=== PATIENT | male | born 1965 | race Caucasian/White ===

== ENCOUNTER 2017-12-20 13:58 | Emergency (ER) | payer MEDICARE, MEDICAID ==
[~2017-12-20] VITALS: Ht 170.2 cm; Wt 85.0 kg
[~2017-12-20 13:58] MED LIST: CLA10T PO; DES150T PO; DIL100C PO; HYDR-3717 PO; PYRI50TA10 PO; [UNRECOGNIZED DRUG - CODE] PO
[2017-12-20 14:04] VITALS: BP 154/68
[2017-12-20 14:44] LABS: BASOPHILS # (AUTO) 0.1 X10'3 (0-0.2); BASOPHILS % (AUTO) 0.9 % (0-1); EOSINOPHILS # (AUTO) 0.1 X10'3 (0-0.9); EOSINOPHILS % (AUTO) 1.3 % (0-6); HEMATOCRIT 43.6 % (42.0-52.0); HEMOGLOBIN 15.5 g/dl (14.0-17.9); LYMPHOCYTES # (AUTO) 1.9 X10'3 (1.1-4.8); LYMPHOCYTES % (AUTO) 19.7 % (21-51); MEAN CORPUSCULAR HEMOGLOBIN 30.8 PG (27.0-31.0); MEAN CORPUSCULAR HGB CONC 35.5 % (33.0-36.5); MEAN CORPUSCULAR VOLUME 86.7 FL (78-98); MEAN PLATELET VOLUME 9.4 FL (7.4-10.4); MONOCYTES # (AUTO) 0.6 X10'3 (0-0.9); MONOCYTES % (AUTO) 6.5 % (2-12); NEUTROPHILS # (AUTO) 6.8 X10'3 (1.8-7.7); NEUTROPHILS % (AUTO) 71.6 % (42-75); PLATELET COUNT 175 X10'3 (140-440); RED BLOOD COUNT 5.03 X10'6 (4.70-6.10); RED CELL DISTRIBUTION WIDTH 13.6 % (11.5-14.5); WHITE BLOOD COUNT 9.5 X10'3 (4.5-11.0)
[2017-12-20 14:59] LABS: ALANINE AMINOTRANSFERASE 47 U/L (12-78); ALBUMIN 3.7 G/DL (3.4-5.0); ALBUMIN/GLOBULIN RATIO 0.9 (1.1-1.5); ALKALINE PHOSPHATASE 188 IU/L (46-116); ANION GAP 10 (8-16); ASPARTATE AMINO TRANSFERASE 33 U/L (10-37); BILIRUBIN,TOTAL 0.2 MG/DL (0.1-1.0); BLOOD UREA NITROGEN 17 MG/DL (7-18); BUN/CREATININE RATIO 20.2 (5.4-32.0); CALCIUM 8.3 MG/DL (8.5-10.1); CHLORIDE 109 MMOL/L (99-107); CREATININE 0.84 MG/DL (0.60-1.10); POTASSIUM 3.8 MMOL/L (3.5-5.1); SODIUM 145 MMOL/L (135-145); TOTAL CARBON DIOXIDE 26.5 MMOL/L (24-32); TOTAL PROTEIN 7.8 G/DL (6.4-8.2); eGFR > 90 ML/MIN
[2017-12-20 15:00] LABS: GLUCOSE 110 MG/DL (70-104)
[2017-12-20 15:24] LABS: CLARITY,URINE Clear (Clear); COLOR,URINE Yellow (Yellow); GLUCOSE, URINE Negative (Neg); KETONES,URINE Negative (Neg); LEUKOCYTE ESTERASE ,URINE Trace (Neg); NITRITES, URINE Negative (Neg); OCCULT BLOOD,URINE Moderate (Neg); PH,URINE 6.5 (4.8-8.0); PROTEIN,URINE Trace mg/dl (Neg)
[2017-12-20 15:32] LABS: UA COLLECTION TYPE CLN CATCH MIDSTREAM
[2017-12-20 15:57] LABS: RBC,URINE 50-100 /HPF (0-2); WBC,URINE 0-4 /HPF (0-4)
[2017-12-20 15:58] LABS: BACTERIA,URINE NONE SEEN /HPF (Neg); SQUAMOUS EPITHELIAL CELL,UR FEW /LPF (FEW)
[2017-12-20] MEDS ORDERED: LEVO500T2 PO (18:05)
== END 2017-12-20 18:20 | disposition home or self-care (01) ==
LOC: ER 13:59
DX: R31.9 Hematuria, unspecified (principal); N39.0 Urinary tract infection, site not specified; Z98.890 Other specified postprocedural states; Z88.5 Allergy status to narcotic agent; Z79.899 Other long term (current) drug therapy
CPT/HCPCS: 36415; 74176; 80053; 81001; 85025; 87088; 99285

== ENCOUNTER 2018-09-13 17:49 | Emergency (ER) | payer MEDICARE, MEDICAID ==
[~2018-09-13] VITALS: Ht 170.2 cm; Wt 91.0 kg
[2018-09-13 18:11] VITALS: BP 151/81
[2018-09-13] MEDS ORDERED: phenytoin sod ER 100mg capsule PO ONE (21:15)
[2018-09-13] MEDS ORDERED: LIDOcaine 1.5% w/epinephrine 1:200,000 5ml ampul IJ ONE (21:25)
[2018-09-13] MEDS ORDERED: LIDOcaine 1% w/epiNEPHrine 1:200,000 30ml vial IJ ONE (21:25)
[2018-09-13] MEDS ORDERED: TETanus/Pertussis (Acell)/Diphther VAC/PF (Tdap-Adult) 0.5ml syringe IM ONE (21:25)
== END 2018-09-14 01:09 | disposition home or self-care (01) ==
LOC: ER 17:49
DX: S01.01XA Laceration without foreign body of scalp, initial encounter (principal); M54.2 Cervicalgia; Z86.73 Personal history of transient ischemic attack (TIA), and cerebral infarction without residual deficits; Z86.69 Personal history of other diseases of the nervous system and sense organs; Z85.841 Personal history of malignant neoplasm of brain; Z98.890 Other specified postprocedural states; Z88.5 Allergy status to narcotic agent; Z79.899 Other long term (current) drug therapy; W05.0XXA Fall from non-moving wheelchair, initial encounter; Y93.89 Activity, other specified; Y92.89 Other specified places as the place of occurrence of the external cause; Y99.8 Other external cause status
CPT/HCPCS: 12001; 70450; 72125; 90471; 90715; 99284; J3490

== ENCOUNTER 2018-09-23 09:55 | Emergency (ER) | payer MEDICARE, MEDICAID ==
[~2018-09-23] VITALS: Ht 175.3 cm; Wt 91.4 kg
[2018-09-23 09:57] VITALS: BP 154/82
== END 2018-09-23 10:47 | disposition home or self-care (01) ==
LOC: ER 09:56
DX: S01.01XD Laceration without foreign body of scalp, subsequent encounter (principal); Z48.02 Encounter for removal of sutures; Z86.73 Personal history of transient ischemic attack (TIA), and cerebral infarction without residual deficits; Z86.69 Personal history of other diseases of the nervous system and sense organs; Z98.890 Other specified postprocedural states; Z88.5 Allergy status to narcotic agent; Z79.899 Other long term (current) drug therapy; W05.0XXD Fall from non-moving wheelchair, subsequent encounter
CPT/HCPCS: 99284

== ENCOUNTER 2019-01-13 11:28 | Inpatient (IN) | payer MEDICARE, MEDICAID ==
[~2019-01-13] VITALS: Ht 172.7 cm; Wt 89.5 kg
[~2019-01-13 11:28] MED LIST changes: -PYRI50TA10 PO; +PYRI50TA13 PO
[2019-01-13] MEDS ORDERED: piperacillin/tazo 3.375gm/50ml 50 ML IV ONE (13:05)
[2019-01-13 13:46] LABS: BASOPHILS # (AUTO) 0.1 X10'3 (0-0.2); BASOPHILS % (AUTO) 0.3 % (0-1); EOSINOPHILS % (AUTO) 0.1 % (0-6); HEMATOCRIT 42.9 % (42.0-52.0); HEMOGLOBIN 14.5 g/dl (14.0-17.9); LYMPHOCYTES # (AUTO) 1.4 X10'3 (1.1-4.8); LYMPHOCYTES % (AUTO) 7.7 % (21-51); MEAN CORPUSCULAR HEMOGLOBIN 31.8 PG (27.0-31.0); MEAN CORPUSCULAR HGB CONC 33.8 g/dL (33.0-36.5); MEAN CORPUSCULAR VOLUME 94.1 FL (78-98); MONOCYTES # (AUTO) 1.4 X10'3 (0-0.9); MONOCYTES % (AUTO) 7.2 % (2-12); NEUTROPHILS # (AUTO) 15.8 X10'3 (1.8-7.7); NEUTROPHILS % (AUTO) 84.7 % (42-75); PLATELET COUNT 177 X10'3 (140-440); RED BLOOD COUNT 4.56 X10'6 (4.70-6.10); RED CELL DISTRIBUTION WIDTH 14.1 % (11.5-14.5); WHITE BLOOD COUNT 18.7 X10'3 (4.5-11.0)
[2019-01-13 14:05] LABS: ALANINE AMINOTRANSFERASE 31 U/L (12-78); ALBUMIN 3.4 G/DL (3.4-5.0); ALBUMIN/GLOBULIN RATIO 0.8 (1.1-1.5); ALKALINE PHOSPHATASE 134 IU/L (46-116); ANION GAP 9 (8-16); ASPARTATE AMINO TRANSFERASE 28 U/L (10-37); BILIRUBIN,TOTAL 0.4 MG/DL (0.1-1.0); BLOOD UREA NITROGEN 13 MG/DL (7-18); BUN/CREATININE RATIO 13.4 (5.4-32.0); CALCIUM 8.7 MG/DL (8.5-10.1); CHLORIDE 104 MMOL/L (99-107); CREATININE 0.97 MG/DL (0.60-1.10); GLUCOSE 173 MG/DL (70-104); MAGNESIUM 1.9 MG/DL (1.5-2.4); POTASSIUM 3.9 MMOL/L (3.5-5.1); SODIUM 141 MMOL/L (135-145); TOTAL CARBON DIOXIDE 28.4 MMOL/L (24-32); TOTAL PROTEIN 7.8 G/DL (6.4-8.2); eGFR 81 ML/MIN
[2019-01-13 14:34] LABS: CLARITY,URINE CLEAR (Clear); COLOR,URINE YELLOW (Yellow); GLUCOSE, URINE NEGATIVE (Neg); KETONES,URINE NEGATIVE (Neg); LEUKOCYTE ESTERASE ,URINE NEGATIVE (Neg); NITRITES, URINE NEGATIVE (Neg); OCCULT BLOOD,URINE LARGE (Neg); PROTEIN,URINE TRACE mg/dl (Neg); UA COLLECTION TYPE VOIDED
[2019-01-13 14:39] LABS: WBC,URINE 0-4 /HPF (0-4)
[2019-01-13 14:40] LABS: BACTERIA,URINE NONE SEEN /HPF (Neg); MUCUS STRANDS FEW /LPF (Neg); RBC,URINE TNTC /HPF (0-2); SQUAMOUS EPITHELIAL CELL,UR MANY /LPF (FEW)
[2019-01-13] MEDS: normal saline 1000ml 1,000 ML IV SCH (14:51)
[2019-01-13] MEDS ORDERED: potassium Cl 40MEQ/NS 500ml 500 ML IV PRN ×2 (14:55)
[2019-01-13] MEDS ORDERED: magnesium hydroxide 30ml (MOM) UD suspension PO PRN (14:55)
[2019-01-13] MEDS ORDERED: magnesium 2GM in 50ml NS 50 ML IV PRN (14:55)
[2019-01-13] MEDS ORDERED: potassium Cl 20 mEq SR tablet PO PRN ×2 (14:55)
[2019-01-13] MEDS ORDERED: mag hydrox/Alum hydrox/simeth 30ml oral suspension PO PRN (14:55)
[2019-01-13] MEDS ORDERED: ondansetron/PF 4mg/2ml inj IV PRN (14:55)
[2019-01-13] MEDS ORDERED: magnesium Cl slow-release 64mg tablet PO PRN (14:55)
[2019-01-13] MEDS: K and/or MAG REPLACEMENT MC SCH (14:55)
[2019-01-13] MEDS ORDERED: HYDROcodone/acetaminophen 5mg/325mg tablet PO PRN (14:55)
[2019-01-13] MEDS ORDERED: morphine 2 MG/ML inj. syringe IV PRN ×2 (14:55)
[2019-01-13] MEDS ORDERED: diphenhydrAMINE 25mg capsule PO PRN (14:55)
[2019-01-13] MEDS ORDERED: acetaminophen 325mg tablet PO PRN ×2 (14:55)
[2019-01-13] MEDS ORDERED: magnesium 4gm in 100ml NS 100 ML IV PRN (14:55)
[2019-01-13] MEDS ORDERED: DEXT15DR7 EACHEYE (15:21)
[2019-01-13] MEDS ORDERED: MIRT15TA8 PO (15:21)
[2019-01-13] MEDS ORDERED: IBUP-1985 PO (15:21)
[2019-01-13] MEDS ORDERED: SULF1TAB49 PO (15:21)
[2019-01-13] MEDS ORDERED: DOCU-28 PO (15:21)
[2019-01-13 15:51] LABS: PHENYTOIN (DILANTIN) 23.8 UG/ML (10.0-20.0)
[2019-01-13 15:53] LABS: HEMOGLOBIN A1C 5.6 % (4.5-6.2)
--- NOTE | 2019-01-13 15:55 | NUR ---
I have received patient report from Dang ARTIS
[2019-01-13] MEDS: cefepime 2g/NS 100ml ADVANTAGE 100 ML IV SCH (16:38)
[2019-01-13 16:45] VITALS: BP 164/99
[2019-01-13] MEDS: HYDROcodone/acetaminophen 10/325mg tab PO PRN (16:47)
[2019-01-13] MEDS: vancomycin inj 1,250 MG in NS 250ml IV soln IV SCH ×2 (17:29→21:32)
[2019-01-13 18:00] VITALS: BP 138/94
[2019-01-13] MEDS ORDERED: iohexol 300mg/ml 100ml inj. ONE (18:03)
[2019-01-13] MEDS ORDERED: hydrALAZINE 20mg/ml inj. IV PRN (18:05)
--- NOTE | 2019-01-13 18:30 | NUR ---
report given to Calixto ARTIS
--- NOTE | 2019-01-13 19:00 | NUR ---
Patient in room ORTHO 4006. I have received report from Shirley ARTIS and had the opportunity to ask questions and assume patient care.
[2019-01-13] MEDS: levetiracetam inj 500 MG in normal saline 100ml IV soln 95 ML IV SCH (21:33)
[2019-01-13] MEDS: carVEDilol 12.5mg tablet PO SCH (21:34)
[2019-01-13] MEDS: heparin, porcine 5000 units/ml vial SQ SCH (21:44)
[2019-01-13 22:00] VITALS: BP 140/91
[2019-01-14] VITALS (16 sets, daily range): BP systolic 112–160; BP diastolic 64–99
[2019-01-14] MEDS: cefepime 2g/NS 100ml ADVANTAGE 100 ML IV SCH ×2 (02:43→14:59)
[2019-01-14] MEDS: normal saline 1000ml 1,000 ML IV SCH ×4 (05:21→21:28)
--- NOTE | 2019-01-14 06:06 | NUR ---
received report from siddharth gibson
[2019-01-14 06:57] LABS: BASOPHILS % (AUTO) 0.3 % (0-1); EOSINOPHILS # (AUTO) 0.1 X10'3 (0-0.9); EOSINOPHILS % (AUTO) 0.9 % (0-6); HEMATOCRIT 38.3 % (42.0-52.0); HEMOGLOBIN 12.9 g/dl (14.0-17.9); LYMPHOCYTES # (AUTO) 1.6 X10'3 (1.1-4.8); MEAN CORPUSCULAR HEMOGLOBIN 31.8 PG (27.0-31.0); MEAN CORPUSCULAR HGB CONC 33.7 g/dL (33.0-36.5); MEAN CORPUSCULAR VOLUME 94.4 FL (78-98); MEAN PLATELET VOLUME 8.9 FL (7.4-10.4); MONOCYTES # (AUTO) 0.8 X10'3 (0-0.9); MONOCYTES % (AUTO) 8.8 % (2-12); NEUTROPHILS # (AUTO) 6.5 X10'3 (1.8-7.7); PLATELET COUNT 160 X10'3 (140-440); RED BLOOD COUNT 4.06 X10'6 (4.70-6.10); RED CELL DISTRIBUTION WIDTH 14.2 % (11.5-14.5)
[2019-01-14 07:22] LABS: ALANINE AMINOTRANSFERASE 27 U/L (12-78); ALBUMIN 2.7 G/DL (3.4-5.0); ALBUMIN/GLOBULIN RATIO 0.7 (1.1-1.5); ALKALINE PHOSPHATASE 101 IU/L (46-116); ANION GAP 6 (8-16); ASPARTATE AMINO TRANSFERASE 18 U/L (10-37); BILIRUBIN,TOTAL 0.3 MG/DL (0.1-1.0); BLOOD UREA NITROGEN 13 MG/DL (7-18); BUN/CREATININE RATIO 17.6 (5.4-32.0); CALCIUM 8.3 MG/DL (8.5-10.1); CHLORIDE 107 MMOL/L (99-107); CHOL/HDL RATIO 3.3 (0.00-4.99); CHOLESTEROL 120 MG/DL (0-200); CREATININE 0.74 MG/DL (0.60-1.10); GLUCOSE 104 MG/DL (70-104); HDL CHOLESTEROL 36 MG/DL (35-60); LDL CHOLESTEROL 71 MG/DL (50-100); MAGNESIUM 1.9 MG/DL (1.5-2.4); PHOSPHORUS 2.4 MG/DL (2.3-4.5); SODIUM 141 MMOL/L (135-145); TOTAL CARBON DIOXIDE 27.7 MMOL/L (24-32); TOTAL PROTEIN 6.6 G/DL (6.4-8.2); TRIGLYCERIDES 108 MG/DL (20-135); eGFR > 90 ML/MIN
[2019-01-14] MEDS: heparin, porcine 5000 units/ml vial SQ SCH (07:43)
[2019-01-14] MEDS: K and/or MAG REPLACEMENT MC SCH (07:44)
[2019-01-14] MEDS: carVEDilol 12.5mg tablet PO SCH ×2 (07:47→21:20)
[2019-01-14] MEDS: levetiracetam inj 500 MG in normal saline 100ml IV soln 95 ML IV SCH ×2 (07:49→21:19)
[2019-01-14] MEDS: vancomycin inj 1,250 MG in NS 250ml IV soln IV SCH ×2 (08:41→16:27)
--- NOTE | 2019-01-14 10:00 | NUR ---
TOOK PIC OF HAND, PIC IN CHART AND RE-DRESSED WOUND, CURRENTLY CDI, CONTINUE TO MONITOR
--- NOTE | 2019-01-14 10:18 | NUR ---
PT TAKEN TO OR
--- NOTE | 2019-01-14 10:55 | NUR ---
pt back on floor b/c or had to take an emergency, pt will go to or later
[2019-01-14] MEDS: HYDROcodone/acetaminophen 10/325mg tab PO PRN ×2 (11:03→14:58)
[2019-01-14] MEDS ORDERED: VANCOMYCIN LEVEL IV ONE (15:30)
[2019-01-14] MEDS ORDERED: ringers solution, lacted 1,000 ML IV SCH (16:25)
[2019-01-14] MEDS ORDERED: morphine 4 MG/ML inj SYRINge IV PRN ×2 (16:25)
[2019-01-14] MEDS ORDERED: hydrALAZINE 20mg/ml inj. IV PRN (16:25)
[2019-01-14] MEDS ORDERED: labetalol 20mg/4ml (5mg/ml) syringe IV PRN (16:25)
[2019-01-14] MEDS ORDERED: ondansetron/PF 4mg/2ml inj IV PRN (16:25)
[2019-01-14] MEDS ORDERED: fentaNYL/PF 50MCG/1 ML 2ML syringe IV PRN ×2 (16:25)
[2019-01-14] MEDS ORDERED: sevoflurane 250ml liquid IH ONE (16:27)
--- NOTE | 2019-01-14 16:30 | NUR ---
pt wheeled down to or at this time
[2019-01-14] MEDS ORDERED: dexamethasone sod phosphate 4mg/ml inj. ONE (16:54)
[2019-01-14] MEDS ORDERED: fentaNYL/PF 50MCG/1 ML 2ML syringe ONE ×2 (16:54)
[2019-01-14] MEDS ORDERED: MIDAZolam 5mg/5ml vial ONE (16:54)
[2019-01-14] MEDS ORDERED: ondansetron/PF 4mg/2ml inj ONE (16:54)
[2019-01-14] MEDS ORDERED: propofol inj 20 ML IV ONE (16:55)
[2019-01-14] MEDS ORDERED: LIDOcaine 1%/PF 5ML 10 MG/ML VIAL ONE (16:55)
--- NOTE | 2019-01-14 17:30 | NUR ---
Received from OR via , accompanied by Anesthesiologist and report given by Anesthesiolgist. PATIENT ARRIVED TO PACU VIA HOSPITAL BED, LMA IN PLACE, RESPONDS TO VERBAL STIMULI, VSS CHARTED 10L MASK 02 SAT 98%, NETTIE DRESSING TO LEFT WRIST CDI, CAP RE-FILL LESS THEN 3 SECONDS, PALPABLE PULSE, SCD'S IN PLACE, WILL CONTINUE TO MONITOR.
--- NOTE | 2019-01-14 17:45 | NUR ---
BURDEN REMOVED, PATIENT TOLERATED WELL.
--- NOTE | 2019-01-14 17:50 | NUR ---
RECEIVED REPORT FROM NATALI IN RN
--- NOTE | 2019-01-14 18:09 | NUR ---
GAVE REPORT STEFF SOUZA
--- NOTE | 2019-01-14 18:10 | NUR ---
PATIENT TRANSFER CRITERIA MET. PATIENT REPORT CALLED TO ROGELIO ARTIS ON ORTHO ALL QUESTIONS AND CONCERNS ADDRESSED. LEFT WRIST DRESSING CDI, IVF INFUSING ORDERED, VSS CHARTED, CARETAKERS AT BEDSIDE. TRANSFERRED VIA HOSPITAL BED ACCOMPANIED BY STAFF, SCD'S IN PLACE.
[2019-01-14] MEDS: lactobacillus rhamnosus 10,000 MMU CELLS/CAPSULE PO SCH (20:00)
[2019-01-14 23:56] LABS: ABG BASE EXCESS -1.8 mmol/L (-2.0-3.0); ABG HCO3 26.3 mmol/L (22.0-26.0); ABG OXYGEN SATURATION 96.3 % (95-98); ABG PCO2 (T) 59.3 mmHg (35.0-48.0); ABG PH (T) 7.264 (7.350-7.450); ABG PO2 (T) 92.8 mmHg (83-108); ALLEN'S TEST Positive; FCOHb 0.1 % (0.5-1.5); FLOW 4 L/min; FMetHb 0.1 % (0.3-1.12); FO2Hb 96.1 % (94-100); PATIENT TEMPERATURE 36.8; TOTAL HEMOGLOBIN 13.5 G/dl (14.0-18.0)
[2019-01-15] VITALS (7 sets, daily range): BP systolic 93–147; BP diastolic 20–88
[2019-01-15] MEDS: vancomycin inj 1,250 MG in NS 250ml IV soln IV SCH ×3 (00:19→16:00)
[2019-01-15] MEDS: heparin, porcine 5000 units/ml vial SQ SCH ×3 (00:20→20:25)
--- NOTE | 2019-01-15 01:00 | NUR ---
Patient arrived on floor via hospital bed transferred to new bed with max assistance. Patient is blind and non verbal, normally communicates with sign language using left hand only right arm is flaccid. Patient on 4L O2 via NC, respiratory is a bedside to start bipap per MD order. Per caregiver patient is normally alert and appropriate, has not been at baseline since returning from surgery. Lungs sounds are clear at this time. Left had is swollen dressing in place from surgery, capillary refill and pulse is present. Repeat ABG ordered for 0300 per RT, will continue to monitor closely
[2019-01-15 03:16] LABS: ABG BASE EXCESS -1.9 mmol/L (-2.0-3.0); ABG HCO3 26.2 mmol/L (22.0-26.0); ABG OXYGEN SATURATION 97.9 % (95-98); ABG PCO2 (T) 57.1 mmHg (35.0-48.0); ABG PH (T) 7.275 (7.350-7.450); ABG PO2 (T) 118.6 mmHg (83-108); ALLEN'S TEST Positive; FCOHb 0.3 % (0.5-1.5); FMetHb 0.3 % (0.3-1.12); FO2Hb 97.3 % (94-100); MINUTE VOLUME 8 L/min; PATIENT TEMPERATURE 36.2; RESPIRATORY RATE 12 b/min; RESPIRATORY RATE (OBSERVED) 12 b/min; TOTAL HEMOGLOBIN 13.5 G/dl (14.0-18.0)
[2019-01-15] MEDS: cefepime 2g/NS 100ml ADVANTAGE 100 ML IV SCH ×2 (03:38→15:48)
[2019-01-15 06:15] LABS: BASOPHILS % (AUTO) 0.5 % (0-1); EOSINOPHILS # (AUTO) 0.1 X10'3 (0-0.9); HEMATOCRIT 37.9 % (42.0-52.0); HEMOGLOBIN 12.9 g/dl (14.0-17.9); LYMPHOCYTES # (AUTO) 1.7 X10'3 (1.1-4.8); LYMPHOCYTES % (AUTO) 19.7 % (21-51); MEAN CORPUSCULAR HGB CONC 33.9 g/dL (33.0-36.5); MEAN CORPUSCULAR VOLUME 94.2 FL (78-98); MEAN PLATELET VOLUME 9.2 FL (7.4-10.4); MONOCYTES # (AUTO) 0.7 X10'3 (0-0.9); MONOCYTES % (AUTO) 7.4 % (2-12); NEUTROPHILS # (AUTO) 6.3 X10'3 (1.8-7.7); NEUTROPHILS % (AUTO) 71.4 % (42-75); PLATELET COUNT 188 X10'3 (140-440); RED BLOOD COUNT 4.02 X10'6 (4.70-6.10); RED CELL DISTRIBUTION WIDTH 13.6 % (11.5-14.5); WHITE BLOOD COUNT 8.8 X10'3 (4.5-11.0)
[2019-01-15 06:28] LABS: ALANINE AMINOTRANSFERASE 22 U/L (12-78); ALBUMIN 2.8 G/DL (3.4-5.0); ALBUMIN/GLOBULIN RATIO 0.7 (1.1-1.5); ALKALINE PHOSPHATASE 99 IU/L (46-116); ANION GAP 7 (8-16); ASPARTATE AMINO TRANSFERASE 16 U/L (10-37); BILIRUBIN,TOTAL 0.2 MG/DL (0.1-1.0); BLOOD UREA NITROGEN 14 MG/DL (7-18); BUN/CREATININE RATIO 17.1 (5.4-32.0); CALCIUM 8.4 MG/DL (8.5-10.1); CHLORIDE 107 MMOL/L (99-107); CREATININE 0.82 MG/DL (0.60-1.10); GLUCOSE 87 MG/DL (70-104); MAGNESIUM 1.9 MG/DL (1.5-2.4); PHOSPHORUS 4.3 MG/DL (2.3-4.5); POTASSIUM 4.5 MMOL/L (3.5-5.1); SODIUM 140 MMOL/L (135-145); TOTAL CARBON DIOXIDE 25.9 MMOL/L (24-32); TOTAL PROTEIN 6.7 G/DL (6.4-8.2); eGFR > 90 ML/MIN
--- NOTE | 2019-01-15 06:30 | NUR ---
Patient in room PCU 3017. I have received report from Jose ARTIS and had the opportunity to ask questions and assume patient care.
[2019-01-15] MEDS: normal saline 1000ml 1,000 ML IV SCH ×2 (06:51→15:47)
[2019-01-15] MEDS: carVEDilol 12.5mg tablet PO SCH ×2 (07:53→20:23)
[2019-01-15] MEDS: lactobacillus rhamnosus 10,000 MMU CELLS/CAPSULE PO SCH ×2 (07:53→20:22)
[2019-01-15] MEDS: levetiracetam inj 500 MG in normal saline 100ml IV soln 95 ML IV SCH (07:54)
[2019-01-15] MEDS: K and/or MAG REPLACEMENT MC SCH (07:55)
--- NOTE | 2019-01-15 18:26 | NUR ---
Problems reprioritized. Patient report given, questions answered & plan of care reviewed with Jose ARTIS.
[2019-01-15] MEDS: levetiracetam 250mg tablet PO SCH (20:22)
[2019-01-15] MEDS ORDERED: phenytoin sod ER 100mg capsule PO SCH (21:00)
[2019-01-16] MEDS: vancomycin inj 1,250 MG in NS 250ml IV soln IV SCH ×2 (01:30→07:56)
[2019-01-16 03:00] VITALS: BP 112/84
[2019-01-16] MEDS: normal saline 1000ml 1,000 ML IV SCH (04:24)
[2019-01-16] MEDS: cefepime 2g/NS 100ml ADVANTAGE 100 ML IV SCH (04:27)
--- NOTE | 2019-01-16 04:31 | NUR ---
Vanco started at 0130, scan not saved properly administered manually in emar.
[2019-01-16 06:00] VITALS: BP 127/102
[2019-01-16 06:04] LABS: BASOPHILS % (AUTO) 0.4 % (0-1); EOSINOPHILS # (AUTO) 0.1 X10'3 (0-0.9); EOSINOPHILS % (AUTO) 1.3 % (0-6); HEMOGLOBIN 12.5 g/dl (14.0-17.9); LYMPHOCYTES # (AUTO) 1.5 X10'3 (1.1-4.8); LYMPHOCYTES % (AUTO) 23.2 % (21-51); MEAN CORPUSCULAR HEMOGLOBIN 32.2 PG (27.0-31.0); MEAN CORPUSCULAR HGB CONC 34.8 g/dL (33.0-36.5); MEAN CORPUSCULAR VOLUME 92.6 FL (78-98); MEAN PLATELET VOLUME 8.7 FL (7.4-10.4); MONOCYTES # (AUTO) 0.6 X10'3 (0-0.9); MONOCYTES % (AUTO) 8.6 % (2-12); NEUTROPHILS # (AUTO) 4.3 X10'3 (1.8-7.7); NEUTROPHILS % (AUTO) 66.5 % (42-75); PLATELET COUNT 184 X10'3 (140-440); RED BLOOD COUNT 3.89 X10'6 (4.70-6.10); RED CELL DISTRIBUTION WIDTH 13.8 % (11.5-14.5); WHITE BLOOD COUNT 6.4 X10'3 (4.5-11.0)
--- NOTE | 2019-01-16 06:10 | NUR ---
Patient in room PCU 3017. I have received report from Jose ARTIS and had the opportunity to ask questions and assume patient care.
--- NOTE | 2019-01-16 06:25 | NUR ---
Problems reprioritized. Patient report given, questions answered & plan of care reviewed with Levy ARTIS.
[2019-01-16 06:27] LABS: ALANINE AMINOTRANSFERASE 24 U/L (12-78); ALBUMIN 2.6 G/DL (3.4-5.0); ALBUMIN/GLOBULIN RATIO 0.7 (1.1-1.5); ALKALINE PHOSPHATASE 89 IU/L (46-116); ANION GAP 4 (8-16); ASPARTATE AMINO TRANSFERASE 23 U/L (10-37); BILIRUBIN,TOTAL 0.2 MG/DL (0.1-1.0); BLOOD UREA NITROGEN 13 MG/DL (7-18); BUN/CREATININE RATIO 14.4 (5.4-32.0); CALCIUM 8.1 MG/DL (8.5-10.1); CHLORIDE 111 MMOL/L (99-107); GLUCOSE 93 MG/DL (70-104); MAGNESIUM 1.9 MG/DL (1.5-2.4); PHOSPHORUS 2.4 MG/DL (2.3-4.5); SODIUM 144 MMOL/L (135-145); TOTAL CARBON DIOXIDE 28.7 MMOL/L (24-32); TOTAL PROTEIN 6.4 G/DL (6.4-8.2); eGFR 89 ML/MIN
[2019-01-16 06:28] LABS: POTASSIUM 3.8 MMOL/L (3.5-5.1)
[2019-01-16] MEDS: carVEDilol 12.5mg tablet PO SCH (07:54)
[2019-01-16] MEDS: lactobacillus rhamnosus 10,000 MMU CELLS/CAPSULE PO SCH (07:54)
[2019-01-16] MEDS: levetiracetam 250mg tablet PO SCH (07:55)
[2019-01-16] MEDS: heparin, porcine 5000 units/ml vial SQ SCH (07:56)
[2019-01-16] MEDS: HYDROcodone/acetaminophen 10/325mg tab PO PRN (07:57)
[2019-01-16] MEDS: K and/or MAG REPLACEMENT MC SCH (08:00)
[2019-01-16] MEDS ORDERED: phenytoin sod ER 100mg capsule PO SCH (08:00)
[2019-01-16] MEDS ORDERED: LINE600T36 PO (09:35)
[2019-01-16] MEDS ORDERED: LACT1CAP26 PO (09:35)
[2019-01-16] MEDS ORDERED: CARV-50 PO (09:35)
[2019-01-16 11:00] VITALS: BP 154/93
--- NOTE | 2019-01-16 14:30 | NUR ---
Pt DCd home with caregiver. [facility] from Pts arm. Dr. Stevenson was called and RN was told to tell Pt to make follow up appointment with Dr. Stevenson in two weeks. extra bandages were given to Pt on discharge to replace old bandages at home.
== END 2019-01-16 14:40 | disposition home health service (06) | DRG 853 ==
LOC: ER 11:29 → ORTHO 4S 16:45 → CMPBEDREQ 01-14 00:22 → PCU 3S 01-15 00:49
PROVIDERS: ADMIT Family Medicine; ATTEND Family Medicine
PROC: 0J9H0ZZ Drainage of Left Lower Arm Subcutaneous Tissue and Fascia, Open Approach (ICD-10-PCS; principal; 2019-01-14 16:47)
DX: A41.9 Sepsis, unspecified organism (principal); G82.50 Quadriplegia, unspecified; L03.114 Cellulitis of left upper limb; L02.512 Cutaneous abscess of left hand; G40.909 Epilepsy, unspecified, not intractable, without status epilepticus; M65.142 Other infective (teno)synovitis, left hand; B95.61 Methicillin susceptible Staphylococcus aureus infection as the cause of diseases classified elsewhere; E66.9 Obesity, unspecified; Z74.01 Bed confinement status; Z88.8 Allergy status to other drugs, medicaments and biological substances; Z85.841 Personal history of malignant neoplasm of brain; Z86.73 Personal history of transient ischemic attack (TIA), and cerebral infarction without residual deficits; Z68.30 Body mass index [BMI] 30.0-30.9, adult
CPT/HCPCS: 36415; 36600; 71045; 73110; 73201; 80053; 80061; 80185; 80202; 81001; 82803; 83036; 83605; 83735; 84100; 84145; 85018; 85025; 87040; 87070; 87075; 87077; 87186; 93005; 94660; 94760; 96365; 96367; 97161; 97530; 99285; A6222; A6449; A7000; G0378; J0692; J1100; J1644; J1953; J2001; J2250; J2270; J2405; J2543; J2704; J3010; J3370; J7030; J7120; Q9967

== ENCOUNTER 2020-02-14 07:29 | Emergency (ER) | payer MEDICARE, MEDICAID ==
[~2020-02-14] VITALS: Ht 175.3 cm; Wt 94.1 kg
[~2020-02-14 07:29] MED LIST changes: +ASPI-1265 PO; -DES150T PO; -DIL100C PO; +ENOX40DI11 SQ; +GUAI100L97 PO; -HYDR-3717 PO; +IPRA3AMP9 NEB; +MIRT15TA8 PO; +PYRI25TA3 PO; -PYRI50TA13 PO
[2020-02-14] MEDS ORDERED: ondansetron/PF 4mg/2ml inj IV ONE (08:00)
[2020-02-14] MEDS ORDERED: fentaNYL/PF 50MCG/1 ML 2ML syringe IV ONE (08:00)
[2020-02-14] MEDS ORDERED: normal saline 1000ML IV soln IVB ONE (08:00)
[2020-02-14 08:30] LABS: BASOPHILS % (AUTO) 0.3 % (0-1); EOSINOPHILS # (AUTO) 0.1 X10'3 (0-0.9); EOSINOPHILS % (AUTO) 0.8 % (0-6); HEMATOCRIT 45.8 % (42.0-52.0); LYMPHOCYTES # (AUTO) 1.6 X10'3 (1.1-4.8); LYMPHOCYTES % (AUTO) 14.1 % (21-51); MEAN CORPUSCULAR HEMOGLOBIN 29.4 PG (27.0-31.0); MEAN CORPUSCULAR HGB CONC 32.8 g/dL (33.0-36.5); MEAN CORPUSCULAR VOLUME 89.6 FL (78-98); MEAN PLATELET VOLUME 10.1 FL (7.4-10.4); MONOCYTES # (AUTO) 0.8 X10'3 (0-0.9); MONOCYTES % (AUTO) 7.3 % (2-12); NEUTROPHILS # (AUTO) 8.6 X10'3 (1.8-7.7); NEUTROPHILS % (AUTO) 77.5 % (42-75); PLATELET COUNT 152 X10'3 (140-440); RED BLOOD COUNT 5.12 X10'6 (4.70-6.10); RED CELL DISTRIBUTION WIDTH 14.4 % (11.5-14.5); WHITE BLOOD COUNT 11.1 X10'3 (4.5-11.0)
[2020-02-14 08:59] LABS: ALANINE AMINOTRANSFERASE 33 U/L (12-78); ALBUMIN 3.6 G/DL (3.4-5.0); ALBUMIN/GLOBULIN RATIO 0.8 (1.1-1.5); ALKALINE PHOSPHATASE 153 IU/L (46-116); ANION GAP 7 (8-16); ASPARTATE AMINO TRANSFERASE 25 U/L (10-37); BILIRUBIN,TOTAL 0.4 MG/DL (0.1-1.0); BLOOD UREA NITROGEN 13 MG/DL (7-18); BUN/CREATININE RATIO 16.5 (5.4-32.0); CHLORIDE 110 MMOL/L (99-107); CREATININE 0.79 MG/DL (0.60-1.10); GLUCOSE 96 MG/DL (70-104); POTASSIUM 3.9 MMOL/L (3.5-5.1); SODIUM 146 MMOL/L (135-145); TOTAL CARBON DIOXIDE 29.4 MMOL/L (24-32); eGFR > 90 ML/MIN
[2020-02-14 09:02] LABS: LIPASE 114 U/L (73-393); TROPONIN I < 0.04 NG/ML (0.0-0.05)
[2020-02-14] MEDS ORDERED: ONDA4TAB6 PO (09:23)
[2020-02-14] MEDS ORDERED: ketorolac tromethamine 15mg/ml inj. IV ONE (09:25)
[2020-02-14 09:34] LABS: CLARITY,URINE CLEAR (Clear); COLOR,URINE YELLOW (Yellow); GLUCOSE, URINE NEGATIVE (Neg); KETONES,URINE NEGATIVE (Neg); LEUKOCYTE ESTERASE ,URINE NEGATIVE (Neg); NITRITES, URINE NEGATIVE (Neg); OCCULT BLOOD,URINE NEGATIVE (Neg); PH,URINE 6.5 (4.8-8.0); PROTEIN,URINE NEGATIVE (Neg)
[2020-02-14 09:35] LABS: UA COLLECTION TYPE VOIDED
[2020-02-14 09:43] VITALS: BP 148/96
== END 2020-02-14 09:53 | disposition home or self-care (01) ==
LOC: ER 07:30
DX: I88.0 Nonspecific mesenteric lymphadenitis (principal); G47.30 Sleep apnea, unspecified; Z86.73 Personal history of transient ischemic attack (TIA), and cerebral infarction without residual deficits; Z86.69 Personal history of other diseases of the nervous system and sense organs; Z98.890 Other specified postprocedural states; Z88.5 Allergy status to narcotic agent; Z88.6 Allergy status to analgesic agent; Z79.82 Long term (current) use of aspirin; Z79.899 Other long term (current) drug therapy
CPT/HCPCS: 36415; 71045; 74176; 80053; 81003; 83690; 84484; 85025; 93005; 96374; 96375; 99285; J1885; J2405; J3010; J7030

== ENCOUNTER 2020-03-07 10:16 | Emergency (ER) | payer MEDICARE, MEDICAID ==
[~2020-03-07] VITALS: Ht 170.2 cm; Wt 91.0 kg
[~2020-03-07 10:16] MED LIST changes: +ONDA4TAB6 PO
[2020-03-07] MEDS ORDERED: normal saline 1000ML IV soln IVB ONE (10:45)
[2020-03-07 10:55] LABS: BASOPHILS # (AUTO) 0.1 X10'3 (0-0.2); BASOPHILS % (AUTO) 0.5 % (0-1); EOSINOPHILS # (AUTO) 0.2 X10'3 (0-0.9); EOSINOPHILS % (AUTO) 1.8 % (0-6); HEMATOCRIT 50.2 % (42.0-52.0); HEMOGLOBIN 16.1 g/dl (14.0-17.9); LYMPHOCYTES # (AUTO) 3.1 X10'3 (1.1-4.8); LYMPHOCYTES % (AUTO) 27.7 % (21-51); MEAN CORPUSCULAR HEMOGLOBIN 29.4 PG (27.0-31.0); MEAN CORPUSCULAR HGB CONC 32.1 g/dL (33.0-36.5); MEAN CORPUSCULAR VOLUME 91.6 FL (78-98); MEAN PLATELET VOLUME 10.3 FL (7.4-10.4); MONOCYTES # (AUTO) 0.6 X10'3 (0-0.9); MONOCYTES % (AUTO) 5.3 % (2-12); NEUTROPHILS # (AUTO) 7.1 X10'3 (1.8-7.7); NEUTROPHILS % (AUTO) 64.7 % (42-75); PLATELET COUNT 175 X10'3 (140-440); RED BLOOD COUNT 5.49 X10'6 (4.70-6.10); RED CELL DISTRIBUTION WIDTH 15.1 % (11.5-14.5)
[2020-03-07 11:06] LABS: ALANINE AMINOTRANSFERASE 49 U/L (12-78); ALBUMIN 3.6 G/DL (3.4-5.0); ALBUMIN/GLOBULIN RATIO 0.8 (1.1-1.5); ALKALINE PHOSPHATASE 153 IU/L (46-116); ANION GAP 12 (8-16); ASPARTATE AMINO TRANSFERASE 29 U/L (10-37); BILIRUBIN,TOTAL 0.3 MG/DL (0.1-1.0); BLOOD UREA NITROGEN 13 MG/DL (7-18); BUN/CREATININE RATIO 12.3 (5.4-32.0); CALCIUM 8.5 MG/DL (8.5-10.1); CHLORIDE 111 MMOL/L (99-107); CREATININE 1.06 MG/DL (0.60-1.10); GLUCOSE 115 MG/DL (70-104); PHENYTOIN (DILANTIN) < 0.5 UG/ML (10.0-20.0); POTASSIUM 4.1 MMOL/L (3.5-5.1); SODIUM 149 MMOL/L (135-145); TOTAL CARBON DIOXIDE 26.4 MMOL/L (24-32); eGFR 73 ML/MIN
[2020-03-07 11:17] VITALS: BP 138/96
[2020-03-07] MEDS ORDERED: phenytoin sod ER 100mg capsule PO ONE ×2 (11:30→11:35)
== END 2020-03-07 13:37 | disposition home or self-care (01) ==
LOC: ER 10:16
DX: G40.909 Epilepsy, unspecified, not intractable, without status epilepticus (principal); Z86.73 Personal history of transient ischemic attack (TIA), and cerebral infarction without residual deficits; Z86.69 Personal history of other diseases of the nervous system and sense organs; Z85.841 Personal history of malignant neoplasm of brain; Z98.890 Other specified postprocedural states; Z88.6 Allergy status to analgesic agent; Z88.5 Allergy status to narcotic agent; Z88.8 Allergy status to other drugs, medicaments and biological substances; Z79.82 Long term (current) use of aspirin; Z79.899 Other long term (current) drug therapy
CPT/HCPCS: 36415; 70450; 80053; 80185; 85025; 93005; 99285; J7030